=== PATIENT | female | born 1975 | race Hispanic/Latino ===

== ENCOUNTER → 2017-11-08 | Outpatient (CLI) | payer OTHER | END | disposition home or self-care (01) | LOC: RAH 13:57 | PROVIDERS: ATTEND Family Medicine | DX: N63.20 Unspecified lump in the left breast, unspecified quadrant (principal); N63.10 Unspecified lump in the right breast, unspecified quadrant; R92.8 Other abnormal and inconclusive findings on diagnostic imaging of breast | CPT/HCPCS: 76641; 77066 ==

== ENCOUNTER → 2020-11-15 | Outpatient (CLI) | payer OTHER ==
[2020-11-15 13:55] LABS: BASOPHILS % (AUTO) 1.1 % (0.0-5.0); EOSINOPHILS % (AUTO) 3.2 % (0.0-8.0); HEMATOCRIT 42.9 % (36-48); LYMPHOCYTES % (AUTO) 44.4 % (21.0-51.0); MEAN CORPUSCULAR HEMOGLOBIN 30.3 pg (27.0-33.0); MEAN CORPUSCULAR HGB CONC 33.8 g/dL (32.0-36.0); MEAN CORPUSCULAR VOLUME 89.7 fL (79-99); MONOCYTES % (AUTO) 6.6 % (3.0-13.0); NEUTROPHILS % (AUTO) 44.5 % (40.0-77.0); PLATELET COUNT (AUTO) 301 K/uL (130-400); RED BLOOD CELL COUNT(AUTO) 4.78 MIL/uL (4.00-5.50); RED CELL DISTRIBUTION WIDTH 12.4 % (11.0-15.5); WHITE BLOOD COUNT (AUTO) 4.4 K/uL (4.8-10.8)
== END | disposition home or self-care (01) ==
LOC: LAB 11:54
PROVIDERS: ATTEND Obstetrics & Gynecology
DX: N93.9 Abnormal uterine and vaginal bleeding, unspecified (principal)
CPT/HCPCS: 36415; 82670; 83001; 84146; 84443; 85025

== ENCOUNTER → 2020-11-18 | Outpatient (CLI) | payer OTHER | END | disposition home or self-care (01) | LOC: RAH 09:47 | PROVIDERS: ATTEND Obstetrics & Gynecology | DX: N93.9 Abnormal uterine and vaginal bleeding, unspecified (principal); D25.1 Intramural leiomyoma of uterus | CPT/HCPCS: 76830 ==

== ENCOUNTER → 2020-11-22 | Outpatient (CLI) | payer OTHER ==
[~2020-11-22] MED LIST: GADOTERATE MEGLUMINE 10 MMOL/20 ML VIAL IV ONE
== END | disposition home or self-care (01) ==
LOC: RAH 13:56
PROVIDERS: ATTEND Family Medicine
DX: S83.241A Other tear of medial meniscus, current injury, right knee, initial encounter (principal); N93.8 Other specified abnormal uterine and vaginal bleeding; M25.461 Effusion, right knee; X58.XXXA Exposure to other specified factors, initial encounter; Y93.89 Activity, other specified; Y92.89 Other specified places as the place of occurrence of the external cause; Y99.8 Other external cause status
CPT/HCPCS: 73723; A9575

== ENCOUNTER 2021-02-03 06:28 | Day surgery (SDC) | payer OTHER ==
[2021-02-02 08:45] VITALS: BP 109/67
[2021-02-02 08:54] LABS: BASOPHILS % (AUTO) 1.5 % (0.0-5.0); EOSINOPHILS % (AUTO) 4.3 % (0.0-8.0); HEMATOCRIT 35.2 % (36-48); LYMPHOCYTES % (AUTO) 45.9 % (21.0-51.0); MEAN CORPUSCULAR HEMOGLOBIN 30.8 pg (27.0-33.0); MEAN CORPUSCULAR VOLUME 93.4 fL (79-99); MONOCYTES % (AUTO) 5.8 % (3.0-13.0); NEUTROPHILS % (AUTO) 42.5 % (40.0-77.0); PLATELET COUNT (AUTO) 306 K/uL (130-400); RED BLOOD CELL COUNT(AUTO) 3.77 MIL/uL (4.00-5.50); RED CELL DISTRIBUTION WIDTH 14.1 % (11.0-15.5); WHITE BLOOD COUNT (AUTO) 3.3 K/uL (4.8-10.8)
[2021-02-02 09:46] LABS: CREATININE 0.6 mg/dL (0.5-1.5); POTASSIUM 4.4 mmol/L (3.5-5.1)
[2021-02-03] VITALS (17 sets, daily range): BP systolic 105–129; BP diastolic 67–79
[~2021-02-03] VITALS: Ht 162.6 cm; Wt 74.4 kg
[~2021-02-03 06:28] MED LIST changes: +CEFAZOLIN SODIUM 1 GM VIAL IVP SCH; -GADOTERATE MEGLUMINE 10 MMOL/20 ML VIAL IV ONE; +IRON18TA PO
[2021-02-03] MEDS ORDERED: LACTATED RINGERS 1000ML 1,000 ML IV ONE (07:40)
[2021-02-03] MEDS ORDERED: MIDAZOLAM HCL 1 MG/ML 2ML VIAL ONE (09:38)
[2021-02-03] MEDS ORDERED: FENTANYL CITRATE PF 50 MCG/1 ML 2ML VIAL ONE ×2 (09:38)
[2021-02-03] MEDS ORDERED: PROPOFOL 10 MG/ML 20ML VIAL IV ONE ×2 (09:46→10:23)
[2021-02-03] MEDS ORDERED: ROCURONIUM 10MG/1ML SYR 10 MG/ML ML ONE (09:47)
[2021-02-03] MEDS ORDERED: EPHEDRINE SULFATE 50 MG/ML AMPULE ONE (10:02)
[2021-02-03] MEDS ORDERED: GLYCOPYRROLATE 1 MG/5 ML SYRINGE ONE (10:41)
[2021-02-03] MEDS ORDERED: NEOSTIGMINE 5MG/5ML SYR IV ONE (10:42)
[2021-02-03] MEDS ORDERED: KETOROLAC 30MG VIAL (30MG/ML) ONE (10:43)
[2021-02-03] MEDS ORDERED: CEPH500B PO (10:56)
[2021-02-03] MEDS ORDERED: ACET1TAB25 PO (10:56)
[2021-02-03] MEDS ORDERED: IBUP-2070 PO (10:56)
[2021-02-03] MEDS ORDERED: MEPERIDINE-PF 25 MG/ML SYG ONE (11:11)
[2021-02-03] MEDS ORDERED: ONDANSETRON 4MG INJ ONE (11:27)
== END 2021-02-03 12:40 | disposition home or self-care (01) ==
LOC: DAH 06:28
PROVIDERS: ATTEND Orthopaedic Surgery
DX: M23.321 Other meniscus derangements, posterior horn of medial meniscus, right knee (principal); M67.51 Plica syndrome, right knee; D50.9 Iron deficiency anemia, unspecified; Z98.890 Other specified postprocedural states; Z79.899 Other long term (current) drug therapy; Z87.891 Personal history of nicotine dependence
CPT/HCPCS: 29881; 36415; 80048; 84703; 85025; 87635; A4215; A4221; A4222; A4223; A4606; A4649 ×2; A4663; A4930 ×2; A6223; C9803; J0690; J1885; J2175; J2250; J2405; J2704 ×2; J2710; J3010 ×2; J3490 ×2; J7120 ×2

== ENCOUNTER 2021-02-18 06:50 | Day surgery (SDC) | payer OTHER ==
[2021-02-10 16:15] LABS: BASOPHILS % (AUTO) 1.8 % (0.0-5.0); EOSINOPHILS % (AUTO) 3.2 % (0.0-8.0); HEMATOCRIT 38.9 % (36-48); LYMPHOCYTES % (AUTO) 47.4 % (21.0-51.0); MEAN CORPUSCULAR HEMOGLOBIN 30.7 pg (27.0-33.0); MEAN CORPUSCULAR HGB CONC 32.9 g/dL (32.0-36.0); MEAN CORPUSCULAR VOLUME 93.3 fL (79-99); MONOCYTES % (AUTO) 4.7 % (3.0-13.0); NEUTROPHILS % (AUTO) 42.6 % (40.0-77.0); PLATELET COUNT (AUTO) 347 K/uL (130-400); RED BLOOD CELL COUNT(AUTO) 4.17 MIL/uL (4.00-5.50); RED CELL DISTRIBUTION WIDTH 13.6 % (11.0-15.5); WHITE BLOOD COUNT (AUTO) 3.8 K/uL (4.8-10.8)
[2021-02-17 10:24] VITALS: BP 111/82
[2021-02-18] VITALS (23 sets, daily range): BP systolic 94–114; BP diastolic 59–76
[~2021-02-18] VITALS: Ht 162.6 cm; Wt 73.0 kg
[2021-02-18] MEDS: METRONIDAZOLE 500MG/100ML BAG 100 ML IVPB SCH ×2 (06:00→08:50)
[2021-02-18] MEDS: CEFAZOLIN SODIUM 1 GM VIAL IVP SCH ×2 (06:00→08:38)
[~2021-02-18 06:50] MED LIST changes: +ACETAMINOPHEN 500 MG TABLET PO SCH; -CEFAZOLIN SODIUM 1 GM VIAL IVP SCH; +CELECOXIB 200 MG CAP PO SCH; +ENOXAPARIN SODIUM 30 MG/0.3 ML SQ SCH; +PHENAZOPYRIDINE HCL 200 MG TABLET PO SCH
[2021-02-18] MEDS ORDERED: LACTATED RINGERS 1000ML 1,000 ML IV ONE (07:21)
[2021-02-18] MEDS ORDERED: BUPIVACAINE LIPOSOME/PF 266 MG/20 ML ML IJ SCH (07:30)
[2021-02-18] MEDS ORDERED: SUCCINYLCHOLINE 200MG/10ML SYR ONE (07:31)
[2021-02-18] MEDS ORDERED: LIDOCAINE PF 100MG/5ML (2%) SYRINGE 5ML ONE (07:31)
[2021-02-18] MEDS ORDERED: ROCURONIUM 10MG/1ML SYR 10 MG/ML ML ONE (07:33)
[2021-02-18] MEDS ORDERED: FENTANYL CITRATE PF 50 MCG/1 ML 2ML VIAL ONE (07:33)
[2021-02-18] MEDS ORDERED: PROPOFOL 10 MG/ML 20ML VIAL IV ONE (07:33)
[2021-02-18] MEDS ORDERED: LIDOCAINE 1%-EPI 1:100,000 20 ML VIAL IJ SCH (08:00)
[2021-02-18] MEDS ORDERED: GLYCOPYRROLATE 1 MG/5 ML SYRINGE ONE ×2 (08:38→10:28)
[2021-02-18] MEDS ORDERED: EPHEDRINE SULFATE 50 MG/ML AMPULE ONE (08:47)
[2021-02-18] MEDS ORDERED: FENTANYL CITRATE PF 50 MCG/1 ML 5ML AMP IV ONE (08:59)
[2021-02-18] MEDS ORDERED: NEOSTIGMINE 5MG/5ML SYR IV ONE (10:28)
[2021-02-18] MEDS ORDERED: ONDANSETRON 4MG INJ ONE (12:19)
[2021-02-18] MEDS ORDERED: ACETAMINOPHEN 500 MG TABLET PO SCH (14:00)
[2021-02-18] MEDS ORDERED: MORPHINE 10MG VIAL IM PRN (14:30)
[2021-02-18] MEDS ORDERED: LORAZEPAM 1 MG TABLET PO PRN (14:30)
[2021-02-18] MEDS ORDERED: LORAZEPAM 2 MG/ML 1 ML VIAL IVP PRN (14:30)
[2021-02-18] MEDS ORDERED: ONDANSETRON 4MG INJ IVP PRN (14:30)
[2021-02-18] MEDS ORDERED: DEXTROSE 5%-LACTATED RINGERS 1,000 ML IV SCH (15:00)
== END 2021-02-18 16:15 | disposition home or self-care (01) ==
LOC: SUH 06:50 → DAH 06:50 → SUH 16:15
PROVIDERS: ATTEND Obstetrics & Gynecology
DX: N92.0 Excessive and frequent menstruation with regular cycle (principal); Z20.822 Contact with and (suspected) exposure to COVID-19; N39.3 Stress incontinence (female) (male); D25.1 Intramural leiomyoma of uterus; N72 Inflammatory disease of cervix uteri; N88.8 Other specified noninflammatory disorders of cervix uteri; N83.8 Other noninflammatory disorders of ovary, fallopian tube and broad ligament; Z83.3 Family history of diabetes mellitus; Z82.49 Family history of ischemic heart disease and other diseases of the circulatory system; Z80.0 Family history of malignant neoplasm of digestive organs; Z87.891 Personal history of nicotine dependence; Z98.51 Tubal ligation status
CPT/HCPCS: 58573; S2900; 36415; 85025; 86850; 86900; 86901; 87635; A4344; C9290; C9803; J0330; J0690; J1650; J2001; J2405; J2704; J2710; J3010; J3490; J7030; J7120

== ENCOUNTER → 2022-04-26 | Outpatient (CLI) | payer OTHER ==
[~2022-04-26] MED LIST changes: -ACETAMINOPHEN 500 MG TABLET PO SCH; -CELECOXIB 200 MG CAP PO SCH; -ENOXAPARIN SODIUM 30 MG/0.3 ML SQ SCH; -PHENAZOPYRIDINE HCL 200 MG TABLET PO SCH
== END | disposition home or self-care (01) ==
LOC: RAH 15:38
PROVIDERS: ATTEND Obstetrics & Gynecology
DX: Z12.31 Encounter for screening mammogram for malignant neoplasm of breast (principal)
CPT/HCPCS: 77067

== ENCOUNTER → 2023-05-02 | Outpatient (CLI) | payer OTHER | END | disposition home or self-care (01) | LOC: RAH 15:32 | PROVIDERS: ATTEND Obstetrics & Gynecology | DX: E04.2 Nontoxic multinodular goiter (principal); E04.1 Nontoxic single thyroid nodule | CPT/HCPCS: 76536 ==

== ENCOUNTER → 2023-06-19 | Outpatient (CLI) | payer OTHER | END | disposition home or self-care (01) | LOC: RAH 08:49 | PROVIDERS: ATTEND Internal Medicine Gastroenterology | DX: R13.10 Dysphagia, unspecified (principal); R12 Heartburn | CPT/HCPCS: 74240 ==

== ENCOUNTER → 2023-06-27 | Outpatient (CLI) | payer OTHER ==
[2023-06-27 10:54] LABS: INR 0.94 (0.85-1.15)
[2023-06-27 10:56] LABS: PARTIAL THROMBOPLASTIN TIME 34.2 SEC (26.3-35.5)
== END | disposition home or self-care (01) ==
LOC: RAH 09:41
PROVIDERS: ATTEND Otolaryngology Plastic Surgery within the Head & Neck
DX: E04.1 Nontoxic single thyroid nodule (principal); Z82.49 Family history of ischemic heart disease and other diseases of the circulatory system; Z79.01 Long term (current) use of anticoagulants
CPT/HCPCS: 10005; 36415; 76942; 85610; 85730; 88112; 88305

== ENCOUNTER → 2025-06-22 | Outpatient (CLI) | payer BC | END | disposition home or self-care (01) | LOC: RAH 15:30 | PROVIDERS: ATTEND Obstetrics & Gynecology | DX: Z12.31 Encounter for screening mammogram for malignant neoplasm of breast (principal) | CPT/HCPCS: 77067 ==